=== PATIENT | female | born 1965 | race Caucasian/White ===

== ENCOUNTER → 2021-08-21 | Outpatient (CLI) | payer OTHER | LOC: M SOG 10:52 | PROVIDERS: ATTEND Orthopaedic Surgery Sports Medicine | DX: M25.562 Pain in left knee (principal) ==

== ENCOUNTER → 2021-12-14 | Outpatient (CLI) | payer OTHER | LOC: M PLAIMG 15:37 | PROVIDERS: ATTEND Orthopaedic Surgery Sports Medicine | DX: S83.242D Other tear of medial meniscus, current injury, left knee, subsequent encounter (principal); M25.562 Pain in left knee; M17.12 Unilateral primary osteoarthritis, left knee; W18.30XD Fall on same level, unspecified, subsequent encounter ==

== ENCOUNTER → 2022-01-12 | Outpatient (REF) | payer OTHER | LOC: M SFHCPLAZ 17:12 | PROVIDERS: ATTEND Physician Assistant | DX: R05.9 Cough, unspecified (principal) ==

== ENCOUNTER 2022-06-05 14:50 | Outpatient (RCR) | payer OTHER ==
[~2022-06-05 14:50] MED LIST changes: -ALBU2.5V10; +ALBU2.5V10 INH; -FLUTISP; +FLUTISP NARES
[2022-06-21] MEDS ORDERED: ASPI81CH8 PO (09:21)
[2022-06-21] MEDS ORDERED: MOM30SS2 PO (09:21)
[2022-06-21] MEDS ORDERED: META1POW PO (09:21)
[2022-06-21] MEDS ORDERED: SENN18TA PO (09:21)
[2022-06-21] MEDS ORDERED: ACET-683 PO (09:21)
[2022-06-21] MEDS ORDERED: TRAM50TA2 PO ×2 (09:21→11:12)
[2022-06-21] MEDS ORDERED: MIRA1POW3 PO (09:21)
[2022-06-21] MEDS ORDERED: OXYC-517 PO ×2 (09:21→11:12)
== END 2022-06-22 ==
LOC: M PT 14:50
PROVIDERS: ATTEND Orthopaedic Surgery Adult Reconstructive Orthopaedic Surgery
DX: M17.12 Unilateral primary osteoarthritis, left knee (principal)

== ENCOUNTER → 2022-06-05 | Outpatient (CLI) | payer OTHER ==
[~2022-06-05] MED LIST: ALBU2.5V10; BENZ200C70; CHLO125TA PO; ESZO1TAB4 PO; FENO145T7 PO; FEXO-117 PO; FLUT22IN INH; FLUTISP; LIDO1PAD TOP; MELO15TA28 PO; OLOP1SPR; OMEP-173 PO; ONDA4TAB6 PO; PROAAER10 INH; PROM25TA12 PO; TRAM50TA2 PO
== END ==
LOC: M RAD 13:28
PROVIDERS: ATTEND Orthopaedic Surgery Adult Reconstructive Orthopaedic Surgery
DX: M17.12 Unilateral primary osteoarthritis, left knee (principal); M85.68 Other cyst of bone, other site

== ENCOUNTER → 2022-06-14 | Outpatient (CLI) | payer OTHER ==
[~2022-06-14] MED LIST changes: +ALBU2.5V10; -ALBU2.5V10 INH; +FLUTISP; -FLUTISP NARES
== END ==
LOC: M RAD 09:37
PROVIDERS: ATTEND Orthopaedic Surgery Adult Reconstructive Orthopaedic Surgery
DX: M17.12 Unilateral primary osteoarthritis, left knee (principal)

== ENCOUNTER → 2022-06-14 | Outpatient (CLI) | payer OTHER | LOC: M LABSMTC 09:07 | PROVIDERS: ATTEND Anesthesiology | DX: Z01.812 Encounter for preprocedural laboratory examination (principal) ==

== ENCOUNTER 2022-06-19 06:20 | Observation (INO) | payer OTHER ==
[2022-06-19] VITALS (7 sets, daily range): BP systolic 109–138; BP diastolic 56–78
[~2022-06-19] VITALS: Ht 165.1 cm; Wt 70.8 kg
[~2022-06-19 06:20] MED LIST changes: +ACETAMINOPHEN 500 MG TAB PO ONE; -ALBU2.5V10; +ALBU2.5V10 INH; -FLUTISP; +FLUTISP NARES; +NAPROXEN 250 MG TAB PO ONE; +NS 1,000 ML IV ONE; +PREGABALIN 25 MG CAP (LYRICA) PO ONE; +ROPIVA 125MG/EPINEPH 0.25MG/CLONID 40MCG/KETOR 15MG IN NS 50ML SYRINGE PA ONE; +ceFAZolin SOD 2 GM in IV 1 EA IV ONE; +dexameTHASONE 4 MG/ML 1ML VIAL (J1100 PER 1MG) IV ONE
[2022-06-19] MEDS ORDERED: METOCLOPRAMIDE INJ 10MG/2ML VIAL (J2765 PER 1) IV PRN ×2 (07:00→10:05)
[2022-06-19] MEDS ORDERED: MORPHINE 2 MG/ML 1ML VIAL IV PRN ×2 (07:00→10:05)
[2022-06-19] MEDS ORDERED: ONDANSETRON 4MG 2ML VIAL IV PRN ×2 (07:00→10:05)
[2022-06-19] MEDS ORDERED: LR 1,000 ML IV SCH ×3 (07:00→10:05)
[2022-06-19] MEDS ORDERED: oxyCODONE 5MG TAB PO PRN (07:00)
[2022-06-19] MEDS ORDERED: fentaNYL 100 MCG/2 ML INJECTION IV PRN ×2 (07:00→10:05)
[2022-06-19] MEDS ORDERED: TRANEXAMIC ACID 100 MG/ML 10ML VIAL As Ordered ONE (07:12)
[2022-06-19] MEDS ORDERED: PHENYLephrine 500MCG 5ML (100MCG/ML) SYRINGE As Ordered ONE ×2 (08:00→08:21)
[2022-06-19] MEDS ORDERED: propofoL 200 MG/20 ML VIAL As Ordered ONE ×2 (08:00→09:20)
[2022-06-19] MEDS ORDERED: MIDAZOLAM INJ 2MG/2ML VIAL (J2250 PER 1MG) As Ordered ONE (08:00)
[2022-06-19] MEDS ORDERED: fentaNYL 100 MCG/2 ML INJECTION As Ordered ONE (08:00)
[2022-06-19] MEDS ORDERED: LIDOCAINE 2% 100MG/5ML SDV (FOR ANES.) As Ordered ONE (08:00)
[2022-06-19] MEDS ORDERED: METOCLOPRAMIDE INJ 10MG/2ML VIAL (J2765 PER 1) As Ordered ONE (08:00)
[2022-06-19] MEDS ORDERED: dexameTHASONE 4 MG/ML 1ML VIAL (J1100 PER 1MG) As Ordered ONE (08:00)
[2022-06-19] MEDS ORDERED: ONDANSETRON 4MG 2ML VIAL As Ordered ONE (08:00)
[2022-06-19] MEDS ORDERED: ePHEDrine SULFATE 25 MG/5 ML(5MG/ML) SYRINGE As Ordered ONE (08:05)
[2022-06-19] MEDS ORDERED: BUPIVACAINE/DEXTROSE 0.75% 2ML AMP As Ordered ONE (08:29)
[2022-06-19] MEDS: oxyCODONE 5MG TAB PO PRN ×4 (10:57→19:44)
[2022-06-19] MEDS ORDERED: HOME MED LIST COMPLETE! XX SCH (11:50)
[2022-06-19 11:53] LABS: HEMATOCRIT 35.8 % (36.0-47.0); HEMOGLOBIN 12.1 g/dl (12.0-15.5); MEAN CORPUSCULAR HEMOGLOBIN 30.4 pg (27.0-33.0); MEAN CORPUSCULAR HGB CONC 33.8 g/dl (32.0-36.5); MEAN CORPUSCULAR VOLUME 89.9 fl (80.0-96.0); PLATELET COUNT, AUTOMATED 309 10^3/uL (150-450); RED BLOOD COUNT 3.98 10^6/uL (4.00-5.40); WHITE BLOOD COUNT 7.8 10^3/uL (4.0-10.0)
[2022-06-19 12:14] LABS: BLOOD UREA NITROGEN 14 MG/DL (7-18); CALCIUM LEVEL 9.5 MG/DL (8.5-10.1); CARBON DIOXIDE LEVEL 27 MEQ/L (21-32); CHLORIDE LEVEL 106 MEQ/L (98-107); CREATININE FOR GFR 0.89 MG/DL (0.55-1.30); GLOMERULAR FILTRATION RATE > 60.0 (>51); GLUCOSE, FASTING 178 MG/DL (70-100); POTASSIUM SERUM 3.5 MEQ/L (3.5-5.1); SODIUM LEVEL 139 MEQ/L (136-145)
[2022-06-19] MEDS ORDERED: ALBUTEROL SULFATE 2.5 MG/0.5 ML INH NEB SOLN INH PRN (12:40)
[2022-06-19] MEDS ORDERED: LIDOCAINE 5% (LIDODERM) PATCH TOP PRN (12:40)
[2022-06-19] MEDS ORDERED: ALBUTEROL 90 MCG/ACT 8GM HFA INHALER INH PRN (12:40)
[2022-06-19] MEDS ORDERED: FLUTICASONE PROP 0.05% NASAL SPRAY 16 GM (FLONASE) NARES PRN (12:40)
[2022-06-19] MEDS: traMADol 50 MG TAB PO PRN ×2 (14:03→23:28)
[2022-06-19] MEDS: ACETAMINOPHEN 500 MG TAB PO SCH ×2 (15:22→21:11)
[2022-06-19] MEDS: FEXOFENADINE 60MG TAB PO SCH (15:23)
[2022-06-19] MEDS: CHLORTHALIDONE 25 MG TAB PO SCH (15:23)
[2022-06-19] MEDS: FENOFIBRATE 145MG TABLET (TRICOR) PO SCH (15:23)
[2022-06-19] MEDS: FLUTICASONE HFA 220 MCG 12 GM INHALER (FLOVENT) INH SCH ×2 (15:23→19:36)
[2022-06-19] MEDS: **NOTE PATIENT COMMENT** MISC XX SCH (21:00)
[2022-06-19] MEDS: ASPIRIN 81 MG CHEW TABLET PO SCH (21:10)
[2022-06-20] MEDS: oxyCODONE 5MG TAB PO PRN ×7 (00:48→22:01)
[2022-06-20 02:25] VITALS: BP 120/68
[2022-06-20] MEDS: ACETAMINOPHEN 500 MG TAB PO SCH ×4 (04:00→21:13)
[2022-06-20] MEDS ORDERED: BENZONATATE 100MG CAPSULE PO PRN (05:40)
[2022-06-20 06:00] VITALS: BP 124/68
[2022-06-20] MEDS: traMADol 50 MG TAB PO PRN ×3 (06:01→18:49)
[2022-06-20 06:40] LABS: HEMATOCRIT 32.9 % (36.0-47.0); HEMOGLOBIN 11.1 g/dl (12.0-15.5); MEAN CORPUSCULAR HEMOGLOBIN 30.7 pg (27.0-33.0); MEAN CORPUSCULAR HGB CONC 33.7 g/dl (32.0-36.5); MEAN CORPUSCULAR VOLUME 91.1 fl (80.0-96.0); PLATELET COUNT, AUTOMATED 306 10^3/uL (150-450); RED BLOOD COUNT 3.61 10^6/uL (4.00-5.40); WHITE BLOOD COUNT 14.8 10^3/uL (4.0-10.0)
[2022-06-20 07:09] LABS: BLOOD UREA NITROGEN 10 MG/DL (7-18); CALCIUM LEVEL 9.1 MG/DL (8.5-10.1); CARBON DIOXIDE LEVEL 30 MEQ/L (21-32); CHLORIDE LEVEL 103 MEQ/L (98-107); CREATININE FOR GFR 0.82 MG/DL (0.55-1.30); GLOMERULAR FILTRATION RATE > 60.0 (>51); GLUCOSE, FASTING 90 MG/DL (70-100); POTASSIUM SERUM 3.7 MEQ/L (3.5-5.1); SODIUM LEVEL 138 MEQ/L (136-145)
[2022-06-20] MEDS ORDERED: MOM 30ML SUSPENSION UDC PO PRN (07:30)
[2022-06-20] MEDS ORDERED: SENNA 8.6 MG TAB (SENOKOT) PO PRN (07:30)
[2022-06-20] MEDS: FLUTICASONE HFA 220 MCG 12 GM INHALER (FLOVENT) INH SCH (08:26)
[2022-06-20] MEDS: KETOROLAC 30 MG/ML 1ML VIAL IV PRN ×2 (09:10→15:09)
[2022-06-20] MEDS: MIRALAX *UNIT DOSE* 17GM PACKET PO SCH (09:11)
[2022-06-20] MEDS: METAMUCIL (PSYLLIUM) PACKET PO SCH (09:11)
[2022-06-20] MEDS: ASPIRIN 81 MG CHEW TABLET PO SCH ×2 (09:12→21:00)
[2022-06-20] MEDS: FEXOFENADINE 60MG TAB PO SCH (09:12)
[2022-06-20] MEDS: FENOFIBRATE 145MG TABLET (TRICOR) PO SCH (09:13)
[2022-06-20] MEDS: OMEPRAZOLE 20MG CAP PO SCH (09:13)
[2022-06-20] MEDS: CHLORTHALIDONE 25 MG TAB PO SCH (09:14)
[2022-06-20 10:00] VITALS: BP 129/92
[2022-06-20 14:00] VITALS: BP 134/83
[2022-06-20] MEDS: **NOTE PATIENT COMMENT** MISC XX SCH (21:00)
[2022-06-20 22:00] VITALS: BP 142/80
[2022-06-21] MEDS: traMADol 50 MG TAB PO PRN ×2 (01:03→09:03)
[2022-06-21] MEDS: oxyCODONE 5MG TAB PO PRN ×3 (02:08→12:51)
[2022-06-21] MEDS: ACETAMINOPHEN 500 MG TAB PO SCH ×2 (04:00→09:03)
[2022-06-21 06:00] VITALS: BP 132/81
[2022-06-21] MEDS: OMEPRAZOLE 20MG CAP PO SCH (09:00)
[2022-06-21] MEDS: FENOFIBRATE 145MG TABLET (TRICOR) PO SCH (09:00)
[2022-06-21] MEDS: CHLORTHALIDONE 25 MG TAB PO SCH (09:00)
[2022-06-21] MEDS: ASPIRIN 81 MG CHEW TABLET PO SCH (09:00)
[2022-06-21] MEDS: MIRALAX *UNIT DOSE* 17GM PACKET PO SCH (09:03)
[2022-06-21] MEDS: FEXOFENADINE 60MG TAB PO SCH (09:03)
[2022-06-21] MEDS: METAMUCIL (PSYLLIUM) PACKET PO SCH (09:03)
[2022-06-21] MEDS ORDERED: SENN18TA PO (09:21)
[2022-06-21] MEDS ORDERED: MIRA1POW3 PO (09:21)
[2022-06-21] MEDS ORDERED: OXYC-517 PO ×2 (09:21→11:12)
[2022-06-21] MEDS ORDERED: TRAM50TA2 PO ×2 (09:21→11:12)
[2022-06-21] MEDS ORDERED: META1POW PO (09:21)
[2022-06-21] MEDS ORDERED: MOM30SS2 PO (09:21)
[2022-06-21] MEDS ORDERED: ASPI81CH8 PO (09:21)
[2022-06-21] MEDS ORDERED: ACET-683 PO (09:21)
== END 2022-06-21 14:25 | disposition home or self-care (01) ==
LOC: M SDC 06:20 → M MS5PR 06:21
PROVIDERS: ADMIT Student in an Organized Health Care Education/Training Program; ATTEND Student in an Organized Health Care Education/Training Program
DX: M17.12 Unilateral primary osteoarthritis, left knee (principal); G89.18 Other acute postprocedural pain; K21.9 Gastro-esophageal reflux disease without esophagitis; J45.909 Unspecified asthma, uncomplicated; R51.9 Headache, unspecified; G93.5 Compression of brain; E78.5 Hyperlipidemia, unspecified; L40.9 Psoriasis, unspecified; M54.2 Cervicalgia; Z79.899 Other long term (current) drug therapy; Z79.51 Long term (current) use of inhaled steroids; Z88.8 Allergy status to other drugs, medicaments and biological substances
CPT/HCPCS: 27447; 36415; 64454; 73560; 80048; 85027; 88304; 88311; 94640; 96374; 96376; 97110; 97116; 97161; 97165; 97530; 97535; C1776; J0690; J1100; J1885; J2250; J2270; J2370; J2405; J2765; J3010; S2900

== ENCOUNTER → 2022-06-22 | Outpatient (REF) | payer OTHER ==
[~2022-06-22] MED LIST changes: +ACET-683 PO; -ACETAMINOPHEN 500 MG TAB PO ONE; +ASPI81CH8 PO; +META1POW PO; +MIRA1POW3 PO; +MOM30SS2 PO; -NAPROXEN 250 MG TAB PO ONE; -NS 1,000 ML IV ONE; +OXYC-517 PO; -PREGABALIN 25 MG CAP (LYRICA) PO ONE; -ROPIVA 125MG/EPINEPH 0.25MG/CLONID 40MCG/KETOR 15MG IN NS 50ML SYRINGE PA ONE; +SENN18TA PO; -ceFAZolin SOD 2 GM in IV 1 EA IV ONE; -dexameTHASONE 4 MG/ML 1ML VIAL (J1100 PER 1MG) IV ONE
[2022-06-22 15:56] LABS: HEMATOCRIT 35.2 % (36.0-47.0); HEMOGLOBIN 11.7 g/dl (12.0-15.5); MEAN CORPUSCULAR HEMOGLOBIN 30.5 pg (27.0-33.0); MEAN CORPUSCULAR HGB CONC 33.2 g/dl (32.0-36.5); MEAN CORPUSCULAR VOLUME 91.9 fl (80.0-96.0); PLATELET COUNT, AUTOMATED 350 10^3/uL (150-450); RED BLOOD COUNT 3.83 10^6/uL (4.00-5.40); WHITE BLOOD COUNT 11.1 10^3/uL (4.0-10.0)
== END ==
LOC: M SHH 14:42
PROVIDERS: ATTEND Student in an Organized Health Care Education/Training Program
DX: D64.9 Anemia, unspecified (principal)

== ENCOUNTER → 2022-07-05 | Outpatient (CLI) | payer OTHER | LOC: M SOG 08:54 | PROVIDERS: ATTEND Orthopaedic Surgery Adult Reconstructive Orthopaedic Surgery | DX: M17.12 Unilateral primary osteoarthritis, left knee (principal) ==

== ENCOUNTER → 2022-08-07 | Outpatient (REF) | payer OTHER | LOC: M SFHCLERA 17:36 | PROVIDERS: ATTEND Student in an Organized Health Care Education/Training Program | DX: Z12.4 Encounter for screening for malignant neoplasm of cervix (principal) ==

== ENCOUNTER → 2022-08-22 | Outpatient (CLI) | payer OTHER | LOC: M WHC 12:05 | PROVIDERS: ATTEND Student in an Organized Health Care Education/Training Program | DX: Z12.31 Encounter for screening mammogram for malignant neoplasm of breast (principal) ==

== ENCOUNTER → 2023-03-03 | Outpatient (REF) | payer OTHER ==
[~2023-03-03] MED LIST changes: +FLUT50SP17 NARES; -FLUTISP NARES; +SENN-111 PO; -SENN18TA PO
[2023-03-13 23:07] LABS: CALPROTECTIN STOOL 161 ug/g (0-120); FATS NEUTRAL Normal (.); FATS TOTAL Normal (.); PANCREATIC ELASTASE STOOL >500 (>200)
== END ==
LOC: M LAB REF 10:27
PROVIDERS: ATTEND Nurse Practitioner Family
DX: R19.7 Diarrhea, unspecified (principal)

== ENCOUNTER → 2023-04-01 | Outpatient (CLI) | payer OTHER ==
[~2023-04-01] MED LIST changes: +PROHANCE 279.3MG/ML 15ML VIAL As Ordered ONE
== END ==
LOC: M RAD 10:37
PROVIDERS: ATTEND Student in an Organized Health Care Education/Training Program
DX: Q07.00 Arnold-Chiari syndrome without spina bifida or hydrocephalus (principal)

== ENCOUNTER 2023-05-24 08:46 | Day surgery (SDC) | payer OTHER ==
[~2023-05-24] VITALS: Ht 165.1 cm; Wt 71.8 kg
[~2023-05-24 08:46] MED LIST changes: +ALBU8.5H; +AZEL1SPR3 NARES; +NS 1,000 ML IV ONE; -PROHANCE 279.3MG/ML 15ML VIAL As Ordered ONE
[2023-05-24] MEDS ORDERED: fentaNYL 100 MCG/2 ML INJECTION As Ordered ONE (10:45)
[2023-05-24] MEDS ORDERED: propofoL 200 MG/20 ML VIAL As Ordered ONE (10:45)
[2023-05-24] MEDS ORDERED: LIDOCAINE 2% 100MG/5ML SDV (FOR ANES.) As Ordered ONE (10:45)
[2023-05-24] MEDS ORDERED: ONDANSETRON 4MG 2ML VIAL As Ordered ONE (10:45)
[2023-05-24 11:23] VITALS: TEMP 99.3
[2023-05-24 11:40] VITALS: BP 135/72; O2SAT 97
== END 2023-05-24 12:03 | disposition home or self-care (01) ==
LOC: M OPP 08:46
PROVIDERS: ATTEND Internal Medicine Gastroenterology
DX: Z12.11 Encounter for screening for malignant neoplasm of colon (principal); D12.6 Benign neoplasm of colon, unspecified; K63.5 Polyp of colon; K57.30 Diverticulosis of large intestine without perforation or abscess without bleeding; K64.4 Residual hemorrhoidal skin tags; K64.8 Other hemorrhoids; Z79.02 Long term (current) use of antithrombotics/antiplatelets; Z79.1 Long term (current) use of non-steroidal anti-inflammatories (NSAID); Z79.2 Long term (current) use of antibiotics; Z79.51 Long term (current) use of inhaled steroids; Z79.891 Long term (current) use of opiate analgesic; Z79.899 Other long term (current) drug therapy; Z91.89 Other specified personal risk factors, not elsewhere classified; Z88.8 Allergy status to other drugs, medicaments and biological substances
CPT/HCPCS: 45380; 45385; 88305; J2405